=== PATIENT | male | born 1960 | race Caucasian/White ===

== ENCOUNTER 2019-08-10 10:26 | Inpatient (IN) | payer MEDICAID, OTHER ==
[~2019-08-10] VITALS: Ht 180.3 cm; Wt 76.8 kg
[2019-08-10 10:47] LABS: BASOPHILS # (AUTO) 0.1 X10'3 (0-0.2); BASOPHILS % (AUTO) 1.1 % (0-1); EOSINOPHILS # (AUTO) 0.2 X10'3 (0-0.9); EOSINOPHILS % (AUTO) 2.1 % (0-6); HEMATOCRIT 50.1 % (42.0-52.0); HEMOGLOBIN 17.6 g/dl (14.0-17.9); LYMPHOCYTES # (AUTO) 1.7 X10'3 (1.1-4.8); LYMPHOCYTES % (AUTO) 19.3 % (21-51); MEAN CORPUSCULAR HEMOGLOBIN 31.9 PG (27.0-31.0); MEAN CORPUSCULAR HGB CONC 35.1 g/dL (33.0-36.5); MEAN CORPUSCULAR VOLUME 90.9 FL (78-98); MEAN PLATELET VOLUME 7.5 FL (7.4-10.4); MONOCYTES # (AUTO) 0.7 X10'3 (0-0.9); MONOCYTES % (AUTO) 7.9 % (2-12); NEUTROPHILS # (AUTO) 6.1 X10'3 (1.8-7.7); NEUTROPHILS % (AUTO) 69.6 % (42-75); PLATELET COUNT 397 X10'3 (140-440); RED BLOOD COUNT 5.52 X10'6 (4.70-6.10); RED CELL DISTRIBUTION WIDTH 13.8 % (11.5-14.5); WHITE BLOOD COUNT 8.7 X10'3 (4.5-11.0)
[2019-08-10] MEDS ORDERED: iohexol 350MG/ML 100ml bottle IV ONE (10:58)
[2019-08-10 10:59] LABS: ALANINE AMINOTRANSFERASE 32 U/L (12-78); ALBUMIN 4.3 G/DL (3.4-5.0); ALBUMIN/GLOBULIN RATIO 1.1 (1.1-1.5); ALKALINE PHOSPHATASE 67 IU/L (46-116); ANION GAP 9 (8-16); ASPARTATE AMINO TRANSFERASE 18 U/L (10-37); BILIRUBIN,TOTAL 0.5 MG/DL (0.1-1.0); BLOOD UREA NITROGEN 11 MG/DL (7-18); BUN/CREATININE RATIO 13.8 (5.4-32.0); CALCIUM 9.4 MG/DL (8.5-10.1); CHLORIDE 103 MMOL/L (99-107); GLUCOSE 120 MG/DL (70-104); POTASSIUM 3.8 MMOL/L (3.5-5.1); SODIUM 138 MMOL/L (135-145); TOTAL PROTEIN 8.3 G/DL (6.4-8.2); eGFR > 90 ML/MIN
[2019-08-10 11:02] LABS: PARTIAL THROMBOPLASTIN TIME 27 SECONDS (22-32); TROPONIN I < 0.04 NG/ML (0.0-0.05)
--- NOTE | 2019-08-10 11:24 | NUR ---
TELE NEURO HAS BEEN INITIATED
--- NOTE | 2019-08-10 11:41 | NUR ---
STROKE CONSULT IN PROGRESS.
--- NOTE | 2019-08-10 11:58 | NUR ---
NEURO CONSULT ENDED
[2019-08-10] MEDS ORDERED: aspirin 325mg tablet PO ONE (12:15)
[2019-08-10] MEDS ORDERED: clopidogrel 300mg tablet PO ONE (12:15)
--- NOTE | 2019-08-10 12:15 | NUR ---
STROKE ALERT CALLED OFF
[2019-08-10] MEDS ORDERED: aspirin 81mg tablet.DR PO ONE (12:20)
[2019-08-10] MEDS ORDERED: magnesium 2GM in 50ml NS 50 ML IV PRN (12:25)
[2019-08-10] MEDS ORDERED: HYDROcodone/acetaminophen 5mg/325mg tablet PO PRN (12:25)
[2019-08-10] MEDS ORDERED: magnesium 4gm in 100ml NS 100 ML IV PRN (12:25)
[2019-08-10] MEDS ORDERED: potassium Cl 20 mEq SR tablet PO PRN ×2 (12:25)
[2019-08-10] MEDS ORDERED: potassium CL 10mEq/100ml bag 100 ML IV PRN ×2 (12:25)
[2019-08-10] MEDS ORDERED: diphenhydrAMINE 50 mg/ml inj IV PRN (12:25)
[2019-08-10] MEDS ORDERED: magnesium hydroxide 30ml (MOM) UD suspension PO PRN (12:25)
[2019-08-10] MEDS ORDERED: HYDROcodone/acetaminophen 10/325mg tab PO PRN (12:25)
[2019-08-10] MEDS ORDERED: magnesium Cl slow-release 64mg tablet PO PRN (12:25)
[2019-08-10] MEDS ORDERED: morphine 2 MG/ML inj. syringe IV PRN ×2 (12:25)
[2019-08-10] MEDS ORDERED: acetaminophen 325mg tablet PO PRN (12:25)
[2019-08-10] MEDS ORDERED: diphenhydrAMINE 25mg capsule PO PRN (12:25)
[2019-08-10] MEDS ORDERED: ondansetron/PF 4mg/2ml inj IV PRN (12:25)
[2019-08-10] MEDS ORDERED: mag hydrox/Alum hydrox/simeth 30ml oral suspension PO PRN (12:25)
[2019-08-10] MEDS: K and/or MAG REPLACEMENT MC SCH (12:25)
[2019-08-10] MEDS ORDERED: IBUP-1984 PO (12:34)
[2019-08-10] MEDS ORDERED: TRAM50TA2 PO (12:34)
[2019-08-10] MEDS ORDERED: ACET-75 PO (12:38)
[2019-08-10 13:14] LABS: CHOL/HDL RATIO 6.7 (0.00-4.99); CHOLESTEROL 228 MG/DL (0-200); HDL CHOLESTEROL 34 MG/DL (35-60); LDL CHOLESTEROL 182 MG/DL (50-100); TRIGLYCERIDES 79 MG/DL (20-135)
--- NOTE | 2019-08-10 13:19 | NUR ---
BLOOD PRESSURE CUFF WAS MOVED FROM RIGHT ARM TO LEFT, AND PATIENT FELT CUFF INFLATING MORE ON LEFT ARM THAN RIGHT
[2019-08-10 13:25] LABS: CLARITY,URINE CLEAR (Clear); COLOR,URINE STRAW (Yellow); GLUCOSE, URINE NEGATIVE (Neg); KETONES,URINE NEGATIVE (Neg); LEUKOCYTE ESTERASE ,URINE NEGATIVE (Neg); NITRITES, URINE NEGATIVE (Neg); OCCULT BLOOD,URINE NEGATIVE (Neg); PH,URINE 7.5 (4.8-8.0); PROTEIN,URINE NEGATIVE (Neg); UA COLLECTION TYPE CLN CATCH MIDSTREAM; UROBILINOGEN,URINE 0.2 E.U/dL (0.2-1.0)
--- NOTE | 2019-08-10 13:34 | NUR ---
TO MRI VIA WHEELCHAIR ACCOMPANIED BY CAR PAINTER
[2019-08-10 13:56] LABS: HEMOGLOBIN A1C 5.5 % (4.5-6.2)
--- NOTE | 2019-08-10 14:16 | NUR ---
pt back from mri in stable condition.
--- NOTE | 2019-08-10 14:42 | NUR ---
DR. DILLON AT BEDSIDE
[2019-08-10] MEDS ORDERED: atorvastatin 20mg tablet PO ONE (15:55)
[2019-08-10] MEDS: normal saline 1000ml 1,000 ML IV SCH ×2 (16:40→19:40)
--- NOTE | 2019-08-10 16:44 | NUR ---
Started maintenance fluids while giving primary RN a break.
[2019-08-10] MEDS: carVEDilol 3.125mg tablet PO SCH ×2 (17:34→19:40)
[2019-08-10] MEDS: acetaminophen 325mg tablet PO PRN ×2 (17:35→23:05)
--- NOTE | 2019-08-10 18:15 | NUR ---
Patient in room ED 10. I have received report from STARR Zelaya and had the opportunity to ask questions and will assume patient care when pt arrives to floor.
[2019-08-10 18:45] VITALS: BP 151/98
[2019-08-10] MEDS: heparin, porcine 5000 units/ml vial SQ SCH (19:38)
--- NOTE | 2019-08-10 21:00 | NUR ---
Patients family has some concerns regarding patient receiving Heparin SubQ due to some past issues other family members have had with this medication. This concern will be passed on to day shift nurse on the next shift to discuss with the patient prior to administration.
--- NOTE | 2019-08-10 21:22 | NUR ---
pATIENT IS REFUSING MRSA NASAL SWAP Addendum: 08/11/19 at 0034 by Judy Sanchez RN PATIENT IS REFUSING MRSA NASAL SWAB
[2019-08-10 22:00] VITALS: BP 150/89
[2019-08-11 02:01] VITALS: BP 137/84
[2019-08-11 06:00] VITALS: BP 134/86
--- NOTE | 2019-08-11 06:36 | NUR ---
Problems reprioritized. Patient report given, questions answered & plan of care reviewed with STARR Gonzalez.
--- NOTE | 2019-08-11 06:48 | NUR ---
Patient in room ORTHO 4021. I have received report from Judy CLEMENTS and had the opportunity to ask questions and assume patient care.
[2019-08-11 06:59] LABS: BASOPHILS # (AUTO) 0.1 X10'3 (0-0.2); BASOPHILS % (AUTO) 1.1 % (0-1); EOSINOPHILS # (AUTO) 0.3 X10'3 (0-0.9); EOSINOPHILS % (AUTO) 4.4 % (0-6); LYMPHOCYTES # (AUTO) 1.8 X10'3 (1.1-4.8); LYMPHOCYTES % (AUTO) 26.7 % (21-51); MEAN CORPUSCULAR HEMOGLOBIN 31.5 PG (27.0-31.0); MEAN CORPUSCULAR HGB CONC 34.7 g/dL (33.0-36.5); MEAN CORPUSCULAR VOLUME 90.6 FL (78-98); MEAN PLATELET VOLUME 7.7 FL (7.4-10.4); MONOCYTES # (AUTO) 0.7 X10'3 (0-0.9); MONOCYTES % (AUTO) 10.2 % (2-12); NEUTROPHILS # (AUTO) 3.9 X10'3 (1.8-7.7); NEUTROPHILS % (AUTO) 57.6 % (42-75); PLATELET COUNT 335 X10'3 (140-440); RED BLOOD COUNT 5.08 X10'6 (4.70-6.10); RED CELL DISTRIBUTION WIDTH 13.8 % (11.5-14.5); WHITE BLOOD COUNT 6.8 X10'3 (4.5-11.0)
[2019-08-11 07:33] LABS: ALANINE AMINOTRANSFERASE 26 U/L (12-78); ALBUMIN 3.5 G/DL (3.4-5.0); ALBUMIN/GLOBULIN RATIO 1.1 (1.1-1.5); ALKALINE PHOSPHATASE 53 IU/L (46-116); ANION GAP 8 (8-16); ASPARTATE AMINO TRANSFERASE 15 U/L (10-37); BILIRUBIN,TOTAL 0.6 MG/DL (0.1-1.0); BLOOD UREA NITROGEN 13 MG/DL (7-18); BUN/CREATININE RATIO 14.6 (5.4-32.0); CALCIUM 8.5 MG/DL (8.5-10.1); CHLORIDE 105 MMOL/L (99-107); CHOL/HDL RATIO 7.6 (0.00-4.99); CHOLESTEROL 204 MG/DL (0-200); CREATININE 0.89 MG/DL (0.60-1.10); GLUCOSE 104 MG/DL (70-104); HDL CHOLESTEROL 27 MG/DL (35-60); LDL CHOLESTEROL 154 MG/DL (50-100); MAGNESIUM 1.9 MG/DL (1.5-2.4); PHOSPHORUS 3.2 MG/DL (2.3-4.5); POTASSIUM 3.5 MMOL/L (3.5-5.1); SODIUM 140 MMOL/L (135-145); TOTAL PROTEIN 6.7 G/DL (6.4-8.2); TRIGLYCERIDES 133 MG/DL (20-135); eGFR 88 ML/MIN
[2019-08-11] MEDS: K and/or MAG REPLACEMENT MC SCH (07:53)
[2019-08-11] MEDS ORDERED: aspirin 81mg tablet.DR PO SCH (08:00)
[2019-08-11] MEDS ORDERED: atorvastatin 10mg tablet PO SCH ×2 (08:00)
[2019-08-11] MEDS: carVEDilol 3.125mg tablet PO SCH (08:08)
[2019-08-11] MEDS: heparin, porcine 5000 units/ml vial SQ SCH (08:09)
[2019-08-11] MEDS: normal saline 1000ml 1,000 ML IV SCH (08:18)
[2019-08-11 10:00] VITALS: BP 158/94
[2019-08-11] MEDS ORDERED: ATOR10TA PO (11:01)
[2019-08-11] MEDS ORDERED: ASPI-1071 PO (11:01)
[2019-08-11] MEDS ORDERED: COR3.125T PO (11:01)
[2019-08-11] MEDS ORDERED: NICO-630 TOP (12:33)
[2019-08-11 14:00] VITALS: BP 152/97
--- NOTE | 2019-08-11 15:14 | NUR ---
Carlos [id number] Re: Antonieta. Sterling's images are not up in [facility]. Please enter results. thank you
--- NOTE | 2019-08-11 15:32 | NUR ---
[facility] [place] [phone] called to clarify patients discharge medications. Per Dr Marmolejo Lipitor 40mg Daily for 30 days , and Coreg 6.25mg Po Bid for 30 days RX order called back to [facility] with [facility] and read back.
--- NOTE | 2019-08-11 16:08 | NUR ---
Carlos [id number] Re: Antonieta. carotid images are up in [facility]. patient anxious to go home.
--- NOTE | 2019-08-11 17:01 | NUR ---
safe DC. with family. all belongings with patient. left in personal vehicle.
== END 2019-08-11 17:03 | disposition home or self-care (01) | DRG 54 ==
LOC: ER 10:26 → ED HOLD 12:24 → ORTHO 4S 17:40 → CMPBEDREQ 19:51
PROVIDERS: ADMIT Family Medicine; ATTEND Family Medicine
DX: G43.009 Migraine without aura, not intractable, without status migrainosus (principal); E78.5 Hyperlipidemia, unspecified; F17.290 Nicotine dependence, other tobacco product, uncomplicated; I16.1 Hypertensive emergency; F32.9 Major depressive disorder, single episode, unspecified; I10 Essential (primary) hypertension; F41.9 Anxiety disorder, unspecified; G89.29 Other chronic pain; M54.9 Dorsalgia, unspecified; K21.9 Gastro-esophageal reflux disease without esophagitis; Z79.899 Other long term (current) drug therapy; Z82.0 Family history of epilepsy and other diseases of the nervous system; Z86.73 Personal history of transient ischemic attack (TIA), and cerebral infarction without residual deficits; Z90.49 Acquired absence of other specified parts of digestive tract; Z71.6 Tobacco abuse counseling
CPT/HCPCS: 36415; 70450; 70496; 70498; 70544; 70551; 71045; 80053; 80061; 81003; 82948; 83036; 83735; 84100; 84484; 85025; 85610; 85651; 85730; 92508; 92616; 93005; 93306; 93880; 97116; 97162; 97530; 99285; G0378; J1644; J7030; Q9967